=== PATIENT | female | born 1995 | race Hispanic/Latino ===

== ENCOUNTER 2022-07-10 03:33 | Emergency (ER) | payer BC ==
[2022-07-10 04:18] LABS: #Lymphocytes 1.4 thou/uL (1.20-3.40); #Monocytes 0.8 thou/uL (0.11-0.59); #Neutrophils 14.5 thou/uL (1.40-6.50); %Basophils 0.1 % (0.0-1.0); %Eosinophils 0.1 % (0.0-10.0); %Lymphocytes 8.4 % (21.0-51.0); %Monocytes 4.7 % (0.0-10.0); %Neutrophils 86.8 % (42.0-75.0); Hemoglobin 12.9 g/dL (12.0-16.0); Mean Corpuscular HGB CONC 33.6 g/dL (32.0-36.0); Mean Corpuscular Volume 86.4 fl (78.0-98.0); Mean Platelet Volume 10.7 fL (7.4-10.4); Platelet Count 245 10x3/uL (130-400); RBC Distribution Width 13.5 % (11.5-14.5); Red Blood Cell (RBC) Count 4.46 mill/uL (4.20-5.40); White Blood Cell (WBC) Count 16.8 10x3/uL (4.8-10.8)
[2022-07-10 04:41] LABS: ALT (SGPT) 16 U/L (8-55); AST (SGOT) 12 U/L (5-34); Albumin 3.8 g/dL (3.5-5.0); Alkaline Phosphatase 74 U/L (40-110); Anion Gap 15 mmol/L (10-20); BUN (Urea Nitrogen) 5 mg/dL (7.0-18.7); Bilirubin, Total 0.8 mg/dL (0.2-1.2); Calc. Creatinine Clearance 0 mL/min (70-130); Calcium 9.1 mg/dL (7.8-10.44); Carbon Dioxide 19 mmol/L (22-29); Chloride 105 mmol/L (98-107); Estimated GFR 120; Glucose 118 mg/dL (70-105); Lipase 12 U/L (8-78); Potassium 3.5 mmol/L (3.5-5.1); Protein, Total 7.8 g/dL (6.0-8.3); Sodium 135 mmol/L (136-145)
== END 2022-07-10 06:13 | disposition home or self-care (01) ==
LOC: ERS 03:33
DX: O99.891 Other specified diseases and conditions complicating pregnancy (principal); R10.31 Right lower quadrant pain; Z3A.08 8 weeks gestation of pregnancy
CPT/HCPCS: 76856; 80053; 83690; 84702; 85025

== ENCOUNTER 2022-07-11 12:25 | Emergency (ER) | payer BC ==
[2022-07-11 12:57] LABS: #Eosinphils 0.1 thou/uL (0.0-0.7); #Lymphocytes 1.9 thou/uL (1.20-3.40); #Monocytes 0.5 thou/uL (0.11-0.59); #Neutrophils 7.7 thou/uL (1.40-6.50); %Basophils 0.1 % (0.0-1.0); %Eosinophils 1.3 % (0.0-10.0); %Lymphocytes 18.4 % (21.0-51.0); %Monocytes 5.1 % (0.0-10.0); %Neutrophils 75.2 % (42.0-75.0); Hemoglobin 12.6 g/dL (12.0-16.0); Mean Corpuscular HGB CONC 32.8 g/dL (32.0-36.0); Mean Corpuscular Hemoglobin 28.9 pg (27.0-31.0); Mean Corpuscular Volume 88.1 fl (78.0-98.0); Platelet Count 228 10x3/uL (130-400); RBC Distribution Width 13.4 % (11.5-14.5); Red Blood Cell (RBC) Count 4.36 mill/uL (4.20-5.40); White Blood Cell (WBC) Count 10.3 10x3/uL (4.8-10.8)
[2022-07-11 13:22] LABS: ALT (SGPT) 16 U/L (8-55); AST (SGOT) 11 U/L (5-34); Albumin 3.6 g/dL (3.5-5.0); Alkaline Phosphatase 69 U/L (40-110); Anion Gap 13 mmol/L (10-20); BUN (Urea Nitrogen) 7 mg/dL (7.0-18.7); Bilirubin, Total 0.5 mg/dL (0.2-1.2); Calc. Creatinine Clearance 0 mL/min (70-130); Calcium 9.1 mg/dL (7.8-10.44); Carbon Dioxide 24 mmol/L (22-29); Chloride 105 mmol/L (98-107); Estimated GFR 122; Globulin 4.2 g/dL (2.4-3.5); Glucose 83 mg/dL (70-105); Potassium 3.6 mmol/L (3.5-5.1); Protein, Total 7.8 g/dL (6.0-8.3); Sodium 138 mmol/L (136-145)
[2022-07-11 14:07] LABS: Bacteria/HPF 4+ HPF (None Seen); Bilirubin Negative (Negative); Blood, Urine 3+ (Negative); Clarity Turbid (Clear); Glucose, Urine (Dipstick) Normal (Negative); Ketone, Urine Negative (Negative); Leukocyte 25 Leu/uL (Negative); Nitrite Negative (Negative); Protein, Urine (Dipstick) 20 mg/dL (Neg-Trace); RBC/HPF Greater than 50 HPF (0-3); Specific Gravity, Urine 1.007 (1.002-1.036); Urobilinogen Normal mg/dL (Less than 2); pH, Urine 6.5 (5.0-9.0)
== END 2022-07-11 16:02 | disposition home or self-care (01) ==
LOC: ERS 12:25
DX: O20.0 Threatened abortion (principal); N39.0 Urinary tract infection, site not specified; N83.201 Unspecified ovarian cyst, right side; Z3A.01 Less than 8 weeks gestation of pregnancy
CPT/HCPCS: 36415; 76856; 80053; 81003; 81015; 84702; 85025; 86900; 86901

== ENCOUNTER 2023-10-05 08:59 | Emergency (ER) | payer BC ==
[2023-10-05 09:53] LABS: #Basophils Less than 0.03 10x3/uL (0.0-0.2); %Basophils 0.2 % (0.0-1.0); %Eosinophils 0.7 % (0.0-10.0); %Lymphocytes 10.6 % (21.0-51.0); %Monocytes 5.4 % (0.0-10.0); %Neutrophils 80.9 % (42.0-75.0); Hematocrit 35.8 % (36.0-47.0); Hemoglobin 11.7 g/dL (12.0-16.0); Mean Corpuscular HGB CONC 32.7 g/dL (32.0-36.0); Mean Corpuscular Hemoglobin 28.7 pg (27.0-31.0); Mean Platelet Volume 11.8 fL (7.4-10.4); Platelet Count 237 10x3/uL (130-400); RBC Distribution Width 14.4 % (11.5-14.5); Red Blood Cell (RBC) Count 4.07 mill/uL (4.20-5.40)
[2023-10-05 10:08] LABS: ALT (SGPT) 51 U/L (8-55); AST (SGOT) 26 U/L (5-34); Albumin 2.7 g/dL (3.5-5.0); Alkaline Phosphatase 86 U/L (40-110); Anion Gap 14 mmol/L (10-20); BUN (Urea Nitrogen) 5 mg/dL (7.0-18.7); Bilirubin, Total 0.3 mg/dL (0.2-1.2); Calc. Creatinine Clearance 0 mL/min (70-130); Calcium 9.3 mg/dL (7.8-10.44); Carbon Dioxide 19 mmol/L (22-29); Chloride 109 mmol/L (98-107); Estimated GFR 129; Globulin 4.6 g/dL (2.4-3.5); Glucose 90 mg/dL (70-105); Potassium 3.6 mmol/L (3.5-5.1); Protein, Total 7.3 g/dL (6.0-8.3); Sodium 138 mmol/L (136-145)
[2023-10-05 11:11] LABS: Bacteria/HPF None Seen HPF (None Seen); Bilirubin Negative (Negative); Blood, Urine Negative (Negative); CAUTI Indications for Culture Pregnancy; Clarity Clear (Clear); Glucose, Urine (Dipstick) Normal (Negative); Ketone, Urine Negative (Negative); Leukocyte Negative Leu/uL (Negative); Nitrite Negative (Negative); Protein, Urine (Dipstick) Negative (Neg-Trace); RBC/HPF 0-3 HPF (0-3); Specific Gravity, Urine 1.006 (1.002-1.036); Squamous Epithelial 0-3 HPF (0-3); Urobilinogen Normal mg/dL (Less than 2); WBC/HPF 0-3 HPF (0-3); pH, Urine 7.5 (5.0-9.0)
[2023-10-05 11:34] LABS: Urine Culture Reflex Yes Yes
== END 2023-10-05 11:02 | disposition home or self-care (01) ==
LOC: ERS 08:59
DX: Z36.2 Encounter for other antenatal screening follow-up (principal)
CPT/HCPCS: 36415; 76815; 80053; 81001; 85025; 87086